=== PATIENT | male | born 1990 | race Caucasian/White ===

== ENCOUNTER 2024-02-25 18:00 | Emergency (ER) | payer BC, SELFPAY ==
[2024-02-25] MEDS ORDERED: Acetaminophen 500 MG TAB ONE (19:05)
[2024-02-25] MEDS ORDERED: Ibuprofen 800 MG TAB ONE (19:05)
[2024-02-25] MEDS ORDERED: Benzonatate 100 MG CAP ONE ×2 (19:05→19:06)
== END 2024-02-25 19:20 | disposition home or self-care (01) ==
LOC: MADERS 18:00
DX: J20.9 Acute bronchitis, unspecified (principal)
CPT/HCPCS: 87428; 99283